=== PATIENT | male | born 1975 | race African-American/Black ===

== ENCOUNTER 2021-05-06 12:03 | Observation (INO) | payer MEDICARE, MEDICAID, SELFPAY ==
[2021-05-06] VITALS (11 sets, daily range): BP systolic 99–134; BP diastolic 64–92; PULSE 47–58; RESP 12–18; TEMP 36.1–36.4; O2SAT 10–100; BMI 22.9
--- NOTE | ~2021-05-06 | XR_ITS ---
XR chest 1V portable DATE: 05/06/2021 12:23 INDICATION: Chest pain, weakness TECHNIQUE: Portable AP chest on 05/06/2021 at 1222 hours COMPARISON: None FINDINGS: Left AICD cardiac pacemaker device with lead overlying right ventricle. Normal heart size. No hilar or mediastinal enlargement. No pulmonary infiltrate or consolidation, pleural effusion or pulmonary vascular congestion or pneumo thorax is detected. Included skeletal structures are unremarkable. IMPRESSION: Left AICD cardiac pacemaker No active cardiopulmonary disease Reviewed, dictated and finalized at location A.
--- NOTE | 2021-05-06 12:14 | ECG_ITS ---
Measurements Intervals [place] Rate: 51 P: 34 PA: 194 QRS: 39 QRSD: 169 T: 10 QT: 499 QTc: 461 Interpretive Statements SINUS BRADYCARDIA RIGHT BUNDLE BRANCH BLOCK BASELINE ARTIFACT- I, II, III, AVR, AVF, V1-V6 ABNORMAL ECG Electronically Signed On 05-06-2021 15:55:58 CDT by Betito Vickers D.O.
--- NOTE | 2021-05-06 12:15 | ED.CHESTPAIN ---
HPI - Chest Pain General Chief Complaint: Chest Pain Stated Complaint: chest pain Source: RN notes reviewed History of Present Illness HPI narrative: Patient presents to emergency department from work via EMS for chest pain. 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 States he feels short of breath with the symptoms. He states that he had a similar episode of chest pain 4 days ago that resolved on its own. 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 He denies any fevers or chills abdominal pain nausea vomiting or any other symptoms states he does have a history of Brugada syndrome Related Data Home Medications Medication Instructions Recorded Confirmed amitriptyline 10 mg PO HS 05/06/21 dicyclomine 10 mg PO BID 05/06/21 levetiracetam 500 mg PO BID 05/06/21 metoprolol succinate 25 mg PO DAILY 05/06/21 oxycodone-acetaminophen 1 tablet PO Q6H PRN 05/06/21 pantoprazole 40 mg PO QAM 05/06/21 torsemide 100 mg PO QAM 05/06/21 vitamin B complex [B 1 tablet PO DAILY 05/06/21 Complex-Vitamin B12] Allergies Allergy/AdvReac Type Severity Reaction Status Date / Time meloxicam [From Mobic] Allergy Rash Verified 05/06/21 15:01 NSAIDS (Non-Steroidal Allergy Rash Verified 05/06/21 15:01 Anti-Inflamma phenytoin [From Dilantin] Allergy Rash Verified 05/06/21 15:01 tramadol [From Ultram] Allergy Other Verified 05/06/21 15:01 Review of Systems Review of Systems: Narrative: Gen.: Denies fevers or chills ENT: Denies congestion Respiratory: Reports shortness of breath CV: See HPI GI: Denies abdominal pain nausea, emesis or diarrhea Musculoskeletal: Denies back pain or muscle pain Neuro: Denies numbness, tingling, weakness or focal weakness Skin: Denies rash Except as documented, all other systems reviewed and negative PMF Past Medical History Medical History (Updated 05/06/21 @ 16:23 by Nikko Moncada DO) Brugada syndrome Hypertension Social History Social History (Updated 05/06/21 @ 12:16 by Nikko Moncada DO) Smoking status: Current every day smoker Gender identity (if verbalized by the patient): Male Exam Narrative: Exam Narrative: APPEARANCE: No acute distress, nontoxic, resting in bed EYES: EOMI HEENT: Normocephalic, atraumatic, OMM RESPIRATORY: No respiratory distress Clear to auscultation bilaterally with no rhonchi wheezing or rales. CARDIOVASCULAR: Regular rate and rhythm without murmurs rubs or gallops. Chest: Tender palpation of the left anterior chest wall no sign ecchymosis ABDOMINAL: Soft, nontender, nondistended, no rebound or guarding MUSCULOSKELETAl: Moves all extremities. No clubbing, cyanosis or edema. NEURO: Awake and alert. Following commands, speech normal, no focal deficits SKIN:: Warm, dry. No rashes lesions or abrasions PSYCHIATRIC: Normal affect/mood, Course Course Emergency Course: Patient states chest pain is improved at this time Discussed with Scarlett for Dr. Houser presentation work-up agrees with admission of their service to rule out at this time Discussed with patient and family results of workup and diagnosis. Discussed need for admission. Patient and family understand and agree to current treatment plan Vital Signs Vital signs: Vital Signs Temperature 97.6 F 05/06/21 12:04 Pulse Rate 53 L 05/06/21 12:04 Respiratory Rate 12 05/06/21 12:04 Blood Pressure 128/77 05/06/21 12:04 Pulse Oximetry 100 05/06/21 12:04 Temperature 97.6 F 05/06/21 12:04 Pulse Rate 51 L 05/06/21 15:52 Respiratory Rate 12 05/06/21 15:52 Blood Pressure 99/67 L 05/06/21 15:52 Pulse Oximetry 100 05/06/21 15:52 MDM - Chest Pain Lab Data Result diagrams: 05/06/21 13:03 05/06/21 13:03 Labs: Lab Results 05/06/21 05/06/21 0
[2021-05-06 13:13] LABS: Basophils Percent Auto 0.7 % (0.2-1.2); Eosinophils Absolute Auto 0.4 K/mm3 (0-0.3); Eosinophils Percent Auto 7.8 % (0-4.4); Hematocrit 36.5 % (42.0-52.0); Hemoglobin 11.6 g/dL (14.0-18.0); Immature Granulocyte Absolute 0.03 K/mm3 (0.00-0.031); Immature Granulocyte Percent A 0.5 % (0-0.5); Lymphocytes Absolute Auto 2.24 K/mm3 (0.9-3.2); Lymphocytes Percent Auto 40.6 % (18.3-44.2); Mean Corpuscular HGB Conc 31.8 g/dl (32-36); Mean Corpuscular Hemoglobin 27.8 pg (26-34); Mean Corpuscular Volume 87.5 fl (80-100); Mean Platelet Volume 11.2 fl (7.4-10.4); Monocytes Absolute Auto 0.5 K/mm3 (0.1-0.6); Monocytes Percent Auto 8.7 % (2.6-8.5); Neutrophils Absolute Auto 2.3 K/mm3 (1.3-6.7); Neutrophils Percent Auto 41.7 % (45.5-73.1); Platelet Count Result 213 k/mm3 (150-375); Red Blood Count 4.17 M/mm3 (4.6-6.20); Red Cell Distribution Width 14.3 % (11.5-14.5); White Blood Count 5.5 K/mm3 (4.5-10.0)
[2021-05-06] MEDS: SODIUM CHLORIDE 0.9% IV 1,000 ML 999 ML IV CONT (13:18)
[2021-05-06] MEDS: ASPIRIN 81 MG CHEWABLE TABLET 324 MG PO (13:19)
[2021-05-06] MEDS: MORPHINE SULFATE (*CRX) 2 MG/ML INJ IV PUSH (13:21)
[2021-05-06 13:26] LABS: Alanine Aminotransferase 22 U/L (4-50); Albumin Level 4.3 g/dL (3.5-5.1); Alkaline Phosphatase 52 U/L (38-126); Anion Gap 8 mmol/L (8-16); Aspartate Amino Transferase 30 U/L (17-59); Bilirubin,Total 0.4 mg/dL (0.2-1.3); Blood Urea Nitrogen 6 mg/dL (9-20); Calcium 9.8 mg/dL (8.4-10.2); Carbon Dioxide 30 mmol/L (22-30); Chloride 100 mmol/L (98-107); Estimated CRCL calculation 76 ml/min; Estimated Glomerular Filt Rate > 60; Glucose 97 mg/dL (75-110); Lipase 81 U/L (23-300); Potassium 3.1 mmol/L (3.4-5.0); Sodium 138 mmol/L (137-145)
[2021-05-06 13:33] LABS: D Dimer 0.39 ug/mL (<0.48)
[2021-05-06 13:38] LABS: Troponin I < 0.012 ng/mL (0.000-0.034)
--- NOTE | 2021-05-06 14:48 | PC.NURSE ---
called lab talked to zaki added on a lipid panel at 2165
[2021-05-06] MEDS: POTASSIUM CHLORIDE 20 MEQ TABLET 40 MEQ PO (14:59)
[2021-05-06 15:01] LABS: Cholesterol 187 mg/dL (0-200); HDL Direct 30 mg/dL; Triglycerides 193 mg/dL (<150)
[2021-05-06 15:12] LABS: LDL Cholesterol Direct 95 mg/dL
--- NOTE | 2021-05-06 16:48 | ADMGEN ---
This patient, Billy Lucero, was admitted to IMU Room 213-01 at 1620 on 05/06/2021. Patient/family oriented to hospital policies and general routines including ID bracelet, bed and alarms, visiting hours, pain management, procedures, bathroom and other care routines, personal items, smoking policy, room service/diet, and visiting hours. Information on how to activate the Rapid Response Team has been discussed. Patient/Family are encouraged to report perceived risks to care and to ask questions if they do not understand what they are told or what they should do.
[2021-05-06 17:08] LABS: Troponin I < 0.012 ng/mL (0.000-0.034)
--- NOTE | 2021-05-06 17:54 | ECG_ITS ---
Measurements Intervals [place] Rate: 47 P: 63 [place]: 217 QRS: 7 QRSD: 160 T: 27 QT: 489 QTc: 437 Interpretive Statements SINUS BRADYCARDIA WITH FIRST DEGREE AV BLOCK RIGHT BUNDLE BRANCH BLOCK ABNORMAL ECG Electronically Signed On 05-07-2021 8:24:21 CDT by Betito Vickers D.O.
[2021-05-06] MEDS: NITROGLYCERIN SL 0.4 MG TABLET SUBLINGUAL (18:57)
[2021-05-06 19:54] LABS: Troponin I < 0.012 ng/mL (0.000-0.034)
--- NOTE | 2021-05-06 20:31 | ECG_ITS ---
Measurements Intervals [place] Rate: 51 P: 59 [place]: 218 QRS: 23 QRSD: 159 T: 36 QT: 471 QTc: 435 Interpretive Statements SINUS BRADYCARDIA WITH FIRST DEGREE AV BLOCK RIGHT BUNDLE BRANCH BLOCK ABNORMAL ECG Electronically Signed On 05-07-2021 7:03:59 CDT by Betito Vickers D.O.
[2021-05-06] MEDS: AMITRIPTYLINE HCL 10 MG TABLET PO (22:00)
[2021-05-06] MEDS: levETIRAcetam 500 MG TABLET PO (22:00)
[2021-05-06] MEDS: oxyCODONE/ACETAMINOPHEN (*CRX) 5-325 MG TABLET 1 TABLET PO (22:10)
[2021-05-06] MEDS: oxyCODONE HCL (*CRX) 2.5 MG TAB IR PO (22:13)
[2021-05-07] VITALS (11 sets, daily range): BP systolic 117–137; BP diastolic 74–93; PULSE 49–64; RESP 14–16; TEMP 35.7–36.6; O2SAT 97–100
[2021-05-07] MEDS: TORSEMIDE 20 MG TABLET PO (09:44)
[2021-05-07] MEDS: levETIRAcetam 500 MG TABLET PO (09:44)
[2021-05-07] MEDS: DICYCLOMINE HCL 10 MG CAPSULE PO (09:44)
[2021-05-07] MEDS: METOPROLOL SUCCINATE EXT REL 25 MG TABCR PO (09:44)
[2021-05-07] MEDS: PANTOPRAZOLE 40 MG TABLET PO (09:44)
[2021-05-07] MEDS: ASPIRIN 81 MG CHEWABLE TABLET PO (09:44)
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
[2021-05-07 11:54] LABS: Potassium 3.8 mmol/L (3.4-5.0)
[2021-05-07] MEDS: oxyCODONE/ACETAMINOPHEN (*CRX) 5-325 MG TABLET 1 TABLET PO (12:06)
[2021-05-07] MEDS: oxyCODONE HCL (*CRX) 2.5 MG TAB IR PO (12:07)
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
== END 2021-05-07 16:13 | disposition home or self-care (01) ==
LOC: ANHED 12:46 → ANHIMU 16:23
PROVIDERS: Admitting Provider Internal Medicine Cardiovascular Disease; Emergency Provider Emergency Medicine; Visit Provider Internal Medicine Cardiovascular Disease
DX: R07.89 Other chest pain (principal); R06.02 Shortness of breath; I49.8 Other specified cardiac arrhythmias; I10 Essential (primary) hypertension; G40.909 Epilepsy, unspecified, not intractable, without status epilepticus; Z95.810 Presence of automatic (implantable) cardiac defibrillator; M54.9 Dorsalgia, unspecified; G89.4 Chronic pain syndrome; Z79.891 Long term (current) use of opiate analgesic; F17.210 Nicotine dependence, cigarettes, uncomplicated
CPT/HCPCS: 36415; 71045; 80053; 80061; 83690; 83735; 84132; 84484; 85025; 85380; 85610; 85730; 93005; 96374; 99285; A9270; G0378; J2270; J7030